=== PATIENT | female | born 1930 | race Caucasian/White ===

== ENCOUNTER 2018-08-09 17:20 | Inpatient (IN) ==
[2018-08-09] MEDS ORDERED: SODIUM CHLORIDE 0.9% 500 ML IV STA (18:31)
[2018-08-09] MEDS ORDERED: MECLIZINE 25 MG TABLET PO STA (18:31)
[2018-08-09] MEDS ORDERED: ONDANSETRON 4 MG/2 ML VIAL IV STA (18:31)
[2018-08-09 18:45] LABS: Basophils # 0.1 10*3/uL (0.0-0.2); Basophils % 0.9 % (0.0-0.8); Eosinophils # 0.1 10*3/uL (0.0-0.87); Eosinophils % 1.4 % (0.00-10.9); Hematocrit 35.3 VOL% (35.7-47.0); Hemoglobin 11.2 GM/DL (12.0-16.0); Immature Granulocytes % 0.3 %; Immature Granulocytes Absolute 0.02 #; Lymphocytes # 0.6 10*3/uL (1.4-4.0); Lymphocytes % 8.8 % (21.3-54.2); Mean Corpuscular HGB Conc 31.7 GM/DL (32-36); Mean Corpuscular Hemoglobin 31 PG (27-34); Mean Corpuscular Volume 97.8 FL (87-102); Mean Platelet Volume 11.6 FL (9.6-12.0); Monocytes # 0.6 10*3/uL (0.11-0.8); Neutrophils # 5.7 10*3/uL (1.4-7.4); Neutrophils % 80.6 % (38.7-73.9); Platelet Count 182 T/CUMM (130-400); Red Blood Count 3.61 MC/CUMM (3.8-5.5); Red Cell Distribution Width 12.8 % (9.3-17.3)
[2018-08-09 18:56] LABS: PT Patient Result 30.8 SECS
[2018-08-09 19:11] LABS: Albumin 4.3 G/DL (3.4-5.0); Bilirubin,Total 0.4 MG/DL (0.2-1.0); Total Protein 7.4 G/DL (6.4-8.3)
[2018-08-09 19:12] LABS: Osmolality,Calculated 293.7 MOS/KG (273-304); Potassium 4.5 MMOL/L (3.5-5.1)
[2018-08-09 19:40] LABS: Apearance,Urine Slightly Hazy (Clear); Bacteria,Urine Few /HPF (Few); Bilirubin,Urine Negative (Negative); Blood, Urine Negative (Negative); Glucose,Urine (UA) Negative (Negative); Ketones,Urine Negative (Negative); Mucus,Urine Occasional /LPF (Occasional); Nitrite,Urine Negative (Negative); Protein,Urine Negative; RBC,Urine 1 /HPF (0-4); Squamous Epithelial Cell,Urine Occasional /HPF (0-10); Urine Color Yellow (Yellow); Urine Specific Gravity 1.012 (1.001-1.035); Urine Urobilinogen < 2.0 EU/DL (0.2-1.0); WBC,Urine 3 /HPF (0-6)
[2018-08-09] MEDS ORDERED: ACETAMINOPHEN 325 MG TABLET PO PRN (21:21)
[2018-08-09] MEDS ORDERED: PROMETHAZINE 25 MG/1 ML VIAL IM PRN (21:21)
[2018-08-09] MEDS ORDERED: NICOTINE 21 MG/24 HR PATCH TRANSDERM PRN (21:21)
[2018-08-09] MEDS ORDERED: MORPHINE 4 MG/1 ML VIAL IV PRN (21:21)
[2018-08-09] MEDS ORDERED: ONDANSETRON 4 MG/2 ML VIAL IV PRN (21:21)
[2018-08-09] MEDS ORDERED: diphenhydrAMINE CAP 25 MG CAPSULE PO PRN (21:21)
[2018-08-09] MEDS ORDERED: MECLIZINE 25 MG TABLET PO PRN (21:21)
[2018-08-09] MEDS: SODIUM CHLORIDE 0.9% 1,000 ML IV SCH ×2 (21:30→23:12)
[2018-08-09 23:41] LABS: INR 3.3
[2018-08-09 23:44] LABS: PT Patient Result 33.3 SECS
[2018-08-09 23:58] LABS: Thyroid Stimulating Hormone 2.19 uIU/ml (0.358-3.74)
[2018-08-10 05:05] LABS: Basophils # 0.1 10*3/uL (0.0-0.2); Basophils % 0.7 % (0.0-0.8); Eosinophils # 0.4 10*3/uL (0.0-0.87); Eosinophils % 5.3 % (0.00-10.9); Hematocrit 30.8 VOL% (35.7-47.0); Hemoglobin 9.6 GM/DL (12.0-16.0); Immature Granulocytes % 0.3 %; Immature Granulocytes Absolute 0.02 #; Lymphocytes # 1.1 10*3/uL (1.4-4.0); Lymphocytes % 14.9 % (21.3-54.2); Mean Corpuscular HGB Conc 31.2 GM/DL (32-36); Mean Corpuscular Hemoglobin 31 PG (27-34); Mean Corpuscular Volume 98.1 FL (87-102); Mean Platelet Volume 12.2 FL (9.6-12.0); Monocytes # 0.8 10*3/uL (0.11-0.8); Neutrophils # 4.8 10*3/uL (1.4-7.4); Neutrophils % 67.8 % (38.7-73.9); Platelet Count 164 T/CUMM (130-400); Red Blood Count 3.14 MC/CUMM (3.8-5.5); Red Cell Distribution Width 12.9 % (9.3-17.3)
[2018-08-10 05:42] LABS: Alanine Aminotransferase < 9 U/L (13-56); Albumin 3.6 G/DL (3.4-5.0); Alkaline Phosphatase 49 U/L (45-117); Aspartate Amino Transferase 10 U/L (0-37); Blood Urea Nitrogen 60 MG/DL (7-18); Glucose 91 MG/DL (74-106); Osmolality,Calculated 293.5 MOS/KG (273-304); Potassium 5.1 MMOL/L (3.5-5.1); Sodium 139 MMOL/L (136-145); Total Protein 6.4 G/DL (6.4-8.3)
[2018-08-10] MEDS: LEVOTHYROXINE 25 MCG TABLET PO SCH (06:27)
[2018-08-10] MEDS ORDERED: DOXYCYCLINE HYCLATE 100 MG CAPSULE PO SCH (09:00)
[2018-08-10] MEDS: ASPIRIN EC 81 MG TABLET PO SCH (09:12)
[2018-08-10] MEDS: PANTOPRAZOLE 40 MG TABLET PO SCH (09:12)
[2018-08-10] MEDS: CHOLECALCIFEROL 1,000 UNIT TABLET PO SCH (09:12)
[2018-08-10 09:15] LABS: Risk Ratio 4.06
[2018-08-10] MEDS: amLODIPine 5 MG TABLET PO SCH (12:14)
[2018-08-10] MEDS: SODIUM CHLORIDE 0.9% 1,000 ML IV SCH (12:17)
[2018-08-10] MEDS: MEROPENEM 500 MG in SODIUM CHLORIDE 0.9% 100 ML IV SCH ×2 (12:17→22:45)
[2018-08-10 13:20] LABS: Folate 11.8 NG/ML (5.4-24.0)
[2018-08-10] MEDS: CYANOCOBALAMIN 1000 MCG/1 ML VIAL IM SCH (15:37)
[2018-08-10] MEDS: MIDODRINE 2.5 MG TABLET PO SCH ×2 (15:38→20:39)
[2018-08-10] MEDS ORDERED: SODIUM CHLORIDE 0.9% 500 ML IV ONE (15:43)
[2018-08-10] MEDS: WARFARIN 2.5 MG TABLET PO SCH (18:05)
[2018-08-11] MEDS: SODIUM CHLORIDE 0.9% 1,000 ML IV SCH ×4 (03:31→23:00)
[2018-08-11] MEDS: LEVOTHYROXINE 25 MCG TABLET PO SCH (06:00)
[2018-08-11 08:37] LABS: Calcium 8.2 MG/DL (8.5-10.1); Potassium 4.9 MMOL/L (3.5-5.1)
[2018-08-11] MEDS: ASPIRIN EC 81 MG TABLET PO SCH (09:24)
[2018-08-11] MEDS: amLODIPine 5 MG TABLET PO SCH (09:24)
[2018-08-11] MEDS: PANTOPRAZOLE 40 MG TABLET PO SCH (09:24)
[2018-08-11] MEDS: CHOLECALCIFEROL 1,000 UNIT TABLET PO SCH (09:25)
[2018-08-11] MEDS: CYANOCOBALAMIN 1000 MCG/1 ML VIAL IM SCH (09:25)
[2018-08-11] MEDS: MIDODRINE 2.5 MG TABLET PO SCH ×3 (09:25→20:37)
[2018-08-11 10:24] LABS: INR 2.9; PT Patient Result 29.5 SECS
[2018-08-11] MEDS: MEROPENEM 500 MG in SODIUM CHLORIDE 0.9% 100 ML IV SCH ×2 (11:23→23:05)
[2018-08-11] MEDS: WARFARIN 2.5 MG TABLET PO SCH (17:48)
[2018-08-12 04:40] LABS: Basophils # 0.1 10*3/uL (0.0-0.2); Basophils % 0.9 % (0.0-0.8); Eosinophils # 0.6 10*3/uL (0.0-0.87); Hematocrit 27.4 VOL% (35.7-47.0); Hemoglobin 8.4 GM/DL (12.0-16.0); Immature Granulocytes % 0.4 %; Immature Granulocytes Absolute 0.02 #; Lymphocytes % 18.2 % (21.3-54.2); Mean Corpuscular HGB Conc 30.7 GM/DL (32-36); Mean Corpuscular Hemoglobin 31 PG (27-34); Mean Corpuscular Volume 101.5 FL (87-102); Mean Platelet Volume 12.1 FL (9.6-12.0); Monocytes # 0.6 10*3/uL (0.11-0.8); Neutrophils # 3.3 10*3/uL (1.4-7.4); Neutrophils % 58.5 % (38.7-73.9); Platelet Count 126 T/CUMM (130-400); Red Cell Distribution Width 13.3 % (9.3-17.3); White Blood Count 5.6 T/CUMM (4-12)
[2018-08-12 05:10] LABS: Eosinophils 11 % (0-10); Hypochromasia 1+; Lymphocytes 17 % (20-55); Ovalocytes Slight; Platelet Estimate Normal; Segmented Neutrophils 66 % (50-85); Total Cells Counted 100
[2018-08-12 05:14] LABS: Osmolality,Calculated 297.8 MOS/KG (273-304); Potassium 4.5 MMOL/L (3.5-5.1)
[2018-08-12] MEDS: LEVOTHYROXINE 25 MCG TABLET PO SCH (06:12)
[2018-08-12] MEDS: MIDODRINE 2.5 MG TABLET PO SCH ×3 (08:54→20:59)
[2018-08-12] MEDS: CYANOCOBALAMIN 1000 MCG/1 ML VIAL IM SCH (08:54)
[2018-08-12] MEDS: ASPIRIN EC 81 MG TABLET PO SCH (08:54)
[2018-08-12] MEDS: amLODIPine 5 MG TABLET PO SCH (08:54)
[2018-08-12] MEDS: CHOLECALCIFEROL 1,000 UNIT TABLET PO SCH (08:54)
[2018-08-12] MEDS: PANTOPRAZOLE 40 MG TABLET PO SCH (08:54)
[2018-08-12] MEDS: MEROPENEM 500 MG in SODIUM CHLORIDE 0.9% 100 ML IV SCH ×2 (11:45→23:08)
[2018-08-12] MEDS: WARFARIN 2.5 MG TABLET PO SCH (18:00)
[2018-08-12] MEDS: SODIUM CHLORIDE 0.9% 1,000 ML IV SCH ×2 (18:01→19:24)
[2018-08-13 03:42] LABS: Basophils # 0.1 10*3/uL (0.0-0.2); Basophils % 0.7 % (0.0-0.8); Eosinophils # 0.6 10*3/uL (0.0-0.87); Eosinophils % 9.2 % (0.00-10.9); Hematocrit 28.1 VOL% (35.7-47.0); Hemoglobin 8.7 GM/DL (12.0-16.0); Immature Granulocytes % 0.6 %; Immature Granulocytes Absolute 0.04 #; Lymphocytes % 14.5 % (21.3-54.2); Mean Corpuscular Hemoglobin 31 PG (27-34); Mean Corpuscular Volume 101.4 FL (87-102); Mean Platelet Volume 12.2 FL (9.6-12.0); Monocytes # 0.6 10*3/uL (0.11-0.8); Monocytes % 8.3 % (1.7-12.7); Neutrophils # 4.6 10*3/uL (1.4-7.4); Neutrophils % 66.7 % (38.7-73.9); Platelet Count 122 T/CUMM (130-400); Red Blood Count 2.77 MC/CUMM (3.8-5.5); Red Cell Distribution Width 13.3 % (9.3-17.3); White Blood Count 6.9 T/CUMM (4-12)
[2018-08-13 03:48] LABS: INR 2.9
[2018-08-13 03:49] LABS: Calcium 8.5 MG/DL (8.5-10.1); Osmolality,Calculated 295.7 MOS/KG (273-304); Potassium 4.9 MMOL/L (3.5-5.1)
[2018-08-13 03:54] LABS: PT Patient Result 29.6 SECS
[2018-08-13] MEDS: LEVOTHYROXINE 25 MCG TABLET PO SCH (06:05)
[2018-08-13] MEDS: amLODIPine 5 MG TABLET PO SCH (08:19)
[2018-08-13] MEDS: MIDODRINE 2.5 MG TABLET PO SCH (08:19)
[2018-08-13] MEDS: CHOLECALCIFEROL 1,000 UNIT TABLET PO SCH (08:19)
[2018-08-13] MEDS: PANTOPRAZOLE 40 MG TABLET PO SCH (08:19)
[2018-08-13] MEDS: ASPIRIN EC 81 MG TABLET PO SCH (08:20)
[2018-08-13] MEDS ORDERED: TUBERCULIN SKIN TEST 0.1 ML SYRINGE INTRADERM ONE (08:25)
[2018-08-13] MEDS: MEROPENEM 500 MG in SODIUM CHLORIDE 0.9% 100 ML IV SCH (10:32)
[2018-08-13 11:10] VITALS: BP 157/50
== END 2018-08-13 13:34 | disposition swing bed (61) | DRG 683 ==
LOC: N.ED 17:20 → N.EDINP 21:21 → N.3E 22:23
PROVIDERS: ADMIT Hospitalist; ATTEND Hospitalist

== ENCOUNTER 2018-09-23 13:59 | Inpatient (IN) ==
[2018-09-23] MEDS ORDERED: ALBUTEROL/IPRATROPIUM 3 ML NEB RESP TX STA ×2 (14:28→15:31)
[2018-09-23] MEDS ORDERED: LEVOFLOXACIN INJ 750 MG in PREMIX 1 EACH IV STA (14:29)
[2018-09-23 14:37] LABS: Basophils # 0.1 10*3/uL (0.0-0.2); Basophils % 0.6 % (0.0-0.8); Eosinophils # 0.5 10*3/uL (0.0-0.87); Eosinophils % 4.5 % (0.00-10.9); Hematocrit 24.8 VOL% (35.7-47.0); Hemoglobin 7.5 GM/DL (12.0-16.0); Immature Granulocytes % 0.8 %; Immature Granulocytes Absolute 0.08 #; Lymphocytes # 0.7 10*3/uL (1.4-4.0); Lymphocytes % 6.8 % (21.3-54.2); Mean Corpuscular HGB Conc 30.2 GM/DL (32-36); Mean Corpuscular Hemoglobin 31 PG (27-34); Mean Corpuscular Volume 103.3 FL (87-102); Mean Platelet Volume 11.4 FL (9.6-12.0); Monocytes # 1.1 10*3/uL (0.11-0.8); Monocytes % 10.5 % (1.7-12.7); Neutrophils # 7.9 10*3/uL (1.4-7.4); Neutrophils % 76.8 % (38.7-73.9); Platelet Count 268 T/CUMM (130-400); Red Cell Distribution Width 15.3 % (9.3-17.3); White Blood Count 10.2 T/CUMM (4-12)
[2018-09-23 14:51] LABS: Albumin 3.6 G/DL (3.4-5.0); Bilirubin,Total 0.9 MG/DL (0.2-1.0); Calcium 9.6 MG/DL (8.5-10.1); Osmolality,Calculated 299.3 MOS/KG (273-304); Potassium 5.3 MMOL/L (3.5-5.1); Total Protein 7.8 G/DL (6.4-8.3)
[2018-09-23] MEDS ORDERED: MECLIZINE 25 MG TABLET PO PRN (15:58)
[2018-09-23] MEDS ORDERED: AZITHROMYCIN INJ 500 MG in SODIUM CHLORIDE 0.9% 250 ML IV SCH (16:30)
[2018-09-23 16:34] LABS: INR 4.7
[2018-09-23 16:36] LABS: PT Patient Result 50.8 SECS
[2018-09-23] MEDS ORDERED: AZITHROMYCIN 500 MG VIAL IV ONE (16:49)
[2018-09-23] MEDS ORDERED: FUROSEMIDE 20 MG/2 ML VIAL IV PRN (16:57)
[2018-09-23] MEDS ORDERED: SODIUM CHLORIDE 0.9% 1,000 ML IV PRN (16:57)
[2018-09-23] MEDS ORDERED: SODIUM POLYSTYRENE SULFATE 15 GM/60 ML BOTTLE PO STA (17:02)
[2018-09-23] MEDS ORDERED: ACETAMINOPHEN 325 MG TABLET PO PRN (17:17)
[2018-09-23] MEDS ORDERED: ONDANSETRON 4 MG/2 ML VIAL IV PRN (17:17)
[2018-09-23 17:58] LABS: ABG Base Excess 4.6 MMOL/L (-2.5-2.5); ABG HCO3 28.5 MMOL/L (20-26); ABG Oxygen Saturation 88.6 % (95-100); ABG PCO2 52.1 MM HG (35-48); ABG PH 7.375 (7.35-7.45)
[2018-09-23] MEDS ORDERED: WARFARIN 4 MG TABLET PO SCH (18:00)
[2018-09-23] MEDS: methylPREDNISolone SOD SUC 40 MG/1 ML VIAL IV SCH ×2 (19:00→23:36)
[2018-09-23] MEDS: ALBUTEROL/IPRATROPIUM 3 ML NEB RESP TX SCH (19:07)
[2018-09-23] MEDS: FUROSEMIDE 20 MG/2 ML VIAL IV SCH (19:10)
[2018-09-23 19:33] LABS: Troponin I 0.022 NG/ML (0.00-0.045)
[2018-09-23] MEDS: DOCUSATE SODIUM 100 MG CAPSULE PO SCH (20:24)
[2018-09-23] MEDS: MIDODRINE 2.5 MG TABLET PO SCH (20:24)
[2018-09-23] MEDS: FERROUS SULFATE 325 MG TABLET PO SCH (20:24)
[2018-09-23] MEDS: guaiFENesin/DM ER 600-30 MG TABLET PO SCH (20:24)
[2018-09-23] MEDS ORDERED: ALPRAZolam 0.25 MG TABLET PO SCH (21:00)
[2018-09-24] MEDS: ALBUTEROL/IPRATROPIUM 3 ML NEB RESP TX SCH ×3 (01:39→13:56)
[2018-09-24 02:54] LABS: Basophils % 0.1 % (0.0-0.8); Hematocrit 24.8 VOL% (35.7-47.0); Hemoglobin 7.6 GM/DL (12.0-16.0); Immature Granulocytes % 1.3 %; Immature Granulocytes Absolute 0.11 #; Lymphocytes # 0.2 10*3/uL (1.4-4.0); Lymphocytes % 2.4 % (21.3-54.2); Mean Corpuscular HGB Conc 30.6 GM/DL (32-36); Mean Corpuscular Hemoglobin 30 PG (27-34); Mean Corpuscular Volume 98.4 FL (87-102); Mean Platelet Volume 10.9 FL (9.6-12.0); Monocytes # 0.1 10*3/uL (0.11-0.8); Monocytes % 1.1 % (1.7-12.7); Neutrophils % 95.1 % (38.7-73.9); Platelet Count 187 T/CUMM (130-400); Red Blood Count 2.52 MC/CUMM (3.8-5.5); Red Cell Distribution Width 19.9 % (9.3-17.3); White Blood Count 8.5 T/CUMM (4-12)
[2018-09-24 03:10] LABS: PT Patient Result 56.2 SECS
[2018-09-24 03:11] LABS: INR 5.2
[2018-09-24 03:15] LABS: Albumin 3.3 G/DL (3.4-5.0); Bilirubin,Total 0.9 MG/DL (0.2-1.0); Calcium 8.8 MG/DL (8.5-10.1); Potassium 5.3 MMOL/L (3.5-5.1); Total Protein 6.9 G/DL (6.4-8.3)
[2018-09-24 03:18] LABS: Risk Ratio 2.98
[2018-09-24 03:19] LABS: Troponin I 0.022 NG/ML (0.00-0.045)
[2018-09-24] MEDS ORDERED: FUROSEMIDE 40 MG/4 ML VIAL IV ONE ×3 (03:26→09:11)
[2018-09-24 03:31] LABS: Band Neutrophils 1 % (0-10); Lymphocytes 5 % (20-55); Segmented Neutrophils 94 % (50-85)
[2018-09-24 03:32] LABS: Hypochromasia 1+; Platelet Estimate Normal
[2018-09-24 03:33] LABS: Microcytosis 1+; Ovalocytes 1+; Total Cells Counted 100
[2018-09-24] MEDS: methylPREDNISolone SOD SUC 40 MG/1 ML VIAL IV SCH ×2 (06:18→12:50)
[2018-09-24] MEDS ORDERED: LEVOTHYROXINE 25 MCG TABLET PO SCH (06:30)
[2018-09-24 06:42] LABS: Calcium 8.8 MG/DL (8.5-10.1); Potassium 4.7 MMOL/L (3.5-5.1)
[2018-09-24] MEDS: FUROSEMIDE 20 MG/2 ML VIAL IV SCH (08:09)
[2018-09-24] MEDS ORDERED: ASPIRIN EC 81 MG TABLET PO SCH (09:00)
[2018-09-24] MEDS ORDERED: CHOLECALCIFEROL 1,000 UNIT TABLET PO SCH (09:00)
[2018-09-24] MEDS ORDERED: ALLOPURINOL 100 MG TABLET PO SCH (09:00)
[2018-09-24] MEDS ORDERED: MAGNESIUM OXIDE 400 MG TABLET PO SCH (09:00)
[2018-09-24] MEDS ORDERED: FUROSEMIDE 40 MG TABLET PO SCH (09:00)
[2018-09-24] MEDS ORDERED: amLODIPine 5 MG TABLET PO SCH (09:00)
[2018-09-24] MEDS ORDERED: FAMOTIDINE 20 MG TABLET PO SCH (09:00)
[2018-09-24] MEDS ORDERED: FUROSEMIDE 40 MG/4 ML VIAL IM ONE (09:11)
[2018-09-24] MEDS: guaiFENesin/DM ER 600-30 MG TABLET PO SCH (09:43)
[2018-09-24] MEDS: FERROUS SULFATE 325 MG TABLET PO SCH (09:44)
[2018-09-24] MEDS: DOCUSATE SODIUM 100 MG CAPSULE PO SCH (09:45)
[2018-09-24] MEDS: MIDODRINE 2.5 MG TABLET PO SCH (09:45)
[2018-09-24] MEDS ORDERED: LORazepam 2 MG/1 ML VIAL IV PRN (11:31)
[2018-09-24] MEDS ORDERED: MORPHINE 4 MG/1 ML VIAL IV PRN (11:31)
[2018-09-24 12:03] LABS: Amorphous Crystals,Urine Occasional /HPF (Few); Apearance,Urine CLOUDY (Clear); Bacteria,Urine Occasional /HPF (Few); Bilirubin,Urine Negative (Negative); Blood, Urine Negative (Negative); Glucose,Urine (UA) Negative (Negative); Ketones,Urine Negative (Negative); Mucus,Urine Occasional /LPF (Occasional); Nitrite,Urine Negative (Negative); Protein,Urine Negative; Squamous Epithelial Cell,Urine Occasional /HPF (0-10); Urine Color Yellow (Yellow); Urine Specific Gravity 1.009 (1.001-1.035); Urine Urobilinogen < 2.0 EU/DL (0.2-1.0); WBC,Urine <1 /HPF (0-6)
[2018-09-24 12:12] LABS: Creatinine,Urine Random 46 MG/DL; Total Protein,Urine Random 10 MG/DL; Urea Nitrogen, Urine Random 372 MG/DL
[2018-09-24 14:32] VITALS: BP 140/60
[2018-09-25] MEDS ORDERED: LEVOFLOXACIN INJ 500 MG in PREMIX 1 EACH IV SCH (18:00)
== END 2018-09-24 14:10 | disposition expired | DRG 871 ==
LOC: EDBD → EDUNIT# → N.ED 13:59 → N.EDINP 17:17 → N.5E 17:31
PROVIDERS: ADMIT Internal Medicine; ATTEND Internal Medicine